=== PATIENT | female | born 1985 | race Two or more races ===

== ENCOUNTER 2020-11-20 01:46 | Emergency (ER) | payer SELFPAY ==
[2020-11-20 02:29] LABS: BILIRUBIN NEGATIVE (NEGATIVE); BLOOD TRACE-INTACT Ery/uL (NEGATIVE); CLARITY HAZY (CLEAR); COLOR YELLOW (YELLOW); GLUCOSE (U) NORMAL (NORMAL); LEUKOCYTES NEGATIVE Leu/uL (NEGATIVE); NITRITE POSITIVE (NEGATIVE); PROTEIN NEGATIVE (NEGATIVE); SPECIFIC GRAVITY 1.025 (1.001-1.030); pH 6.5 (5.0-9.0)
[2020-11-20 02:35] LABS: BACTERIA TRACE; URINARY WBC RARE
[2020-11-20] MEDS ORDERED: BACTRIM DS TAB1 EACH PO (02:38)
== END 2020-11-20 02:50 | disposition home or self-care (01) ==
LOC: FER 01:46
PROVIDERS: Emergency Medicine
DX: N30.00 Acute cystitis without hematuria (principal); Z98.51 Tubal ligation status
CPT/HCPCS: 81001; 99284; J1885